=== PATIENT | female | born 1955 | race Two or more races ===

== ENCOUNTER 2021-01-20 06:15 | Emergency (ER) | payer OTHER ==
[~2021-01-20] VITALS: Ht 160 cm; Wt 63.5 kg
[2021-01-20] MEDS ORDERED: COZAAR25 MG (06:38)
[2021-01-20] MEDS ORDERED: METFORMIN HCL500 M3 (06:38)
[2021-01-20] MEDS ORDERED: CRESTOR10 MG (06:38)
[2021-01-20] MEDS ORDERED: LEVOXYL175 MCG (06:38)
[2021-01-20] MEDS ORDERED: SURFAK240 M1 PO (11:00)
== END 2021-01-20 11:16 | disposition home or self-care (01) ==
LOC: ER 06:15
DX: K59.09 Other constipation (principal); D25.1 Intramural leiomyoma of uterus; K76.89 Other specified diseases of liver; N28.1 Cyst of kidney, acquired; R10.31 Right lower quadrant pain

== ENCOUNTER 2022-08-28 11:53 | Emergency (ER) | payer OTHER ==
[~2022-08-28] VITALS: Ht 160 cm; Wt 63.5 kg
[~2022-08-28 11:53] MED LIST: COZAAR25 MG; CRESTOR10 MG; LEVOXYL175 MCG; METFORMIN HCL500 M3; SURFAK240 M1 PO
== END 2022-08-28 15:06 | disposition home or self-care (01) ==
LOC: ER 11:53
DX: S29.9XXA Unspecified injury of thorax, initial encounter (principal); W19.XXXA Unspecified fall, initial encounter; Y93.9 Activity, unspecified; Y92.9 Unspecified place or not applicable; Z98.84 Bariatric surgery status; E11.9 Type 2 diabetes mellitus without complications; Z79.84 Long term (current) use of oral hypoglycemic drugs

== ENCOUNTER 2022-11-27 10:49 | Emergency (ER) | payer OTHER ==
[~2022-11-27] VITALS: Ht 157.5 cm; Wt 63.5 kg
[2022-11-27] MEDS ORDERED: MACROBID 100 M100 MG PO (14:05)
== END 2022-11-27 14:12 | disposition home or self-care (01) ==
LOC: ER 10:49
DX: N39.0 Urinary tract infection, site not specified (principal)